=== PATIENT | female | born 1945 | race African-American/Black ===

== ENCOUNTER 2022-11-11 12:21 | Outpatient (CLI) | payer MEDICAID, SELFPAY ==
--- NOTE | 2022-11-10 | FLU_PTH ---
PATIENT: RILEY MORELAND LOC: [facility] U#:[id number] AGE/SX: 77/F ROOM: RE11/11/[address]: Dr. Nicky Shaw MD : [id number] BED: DIS: 11/11/2022 SPEC #: [id number] RECD: 11/11/22 11:55 STATUS: KEVIN REMykel #: [id number] SHAHNAZ: 11/10/22 00:[address]: Nicky Shaw DEPT: CYTOLOGY RECD BY: Cheryl Hickey ENTERED: 11/11/22 12:56 SP TYPE: Fluid OTHR DR: Dr. Arsalan Armenta MD Tissues: A - Thyroid gland, NOS B - Thyroid gland, NOS Procedures: Special Stain Group II Surgery Specimen Level IV Cytospin Fluid Cytology Other HEADER OPERATION: Fine needle aspiration left thyroid PRE-OP DIAGNOSIS: Abnormal thyroid ultrasound TISSUE SUBMITTED: A - FNA left thyroid fluid, B - FNA left thyroid x8 slides DIAGNOSIS CYTOLOGY A. 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 See comment. B. 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 See comment. AM:ronny 11/12/2022 COMMENT A & B. The Parker System for thyroid diagnostic categorization was used in the evaluation of this case. The specimen is adequate for evaluation. CYTOLOGY STUDY Slides are reviewed. CYTOLOGY GROSS A - Received is 30 ml of brown cloudy fluid labeled with the patient's name and and designated per the requisition as left thyroid. Submitted for cytology preparation including cell block. B - Received are eight smears labeled with the patient's name and designated per the requisition as left thyroid. Submitted for staining. / ronny 11/11/2022 TC:5 CPT: 68478 x2, [id number]
== END 2022-11-11 23:59 | disposition home or self-care (01) ==
PROVIDERS: PCP Family Medicine; Referring Provider Surgery; Visit Provider Surgery
DX: R94.6 Abnormal results of thyroid function studies (principal)
CPT/HCPCS: 88108; 88161; 88305; 88313